=== PATIENT | male | born 2000 | race Caucasian/White ===

== ENCOUNTER 2021-08-06 18:33 | Emergency (ER) | payer BC, SELFPAY ==
[2021-08-06 18:34] VITALS: BP 130/73; PULSE 85; RESP 16; TEMP 37.4; O2SAT 96; BMI 25.2
[2021-08-06 18:58] LABS: Absolute Lymphocyte Count 1.09 X10^3/uL (0.83-4.51); Absolute Neutrophil Count 3.9 X10^3/uL (2.0-7.7); Basophil# 0.03 X10^3/uL; Basophil% 0.5 % (0-1); Eosinophils% 3.5 % (0-5); Hematocrit 46.6 % (40-54); Hemoglobin 16.4 g/dL (13.0-16.5); Lymphocyte # 1.09 X10^3/ul (0.83-4.51); Lymphocyte % 19.3 % (19-41); Mean Corp Hgb Conc 35.2 g/dL (32-36); Mean Corpuscular Hgb 29.4 pg (27.0-32.0); Mean Corpuscular Volume 83.7 fL (80-94); Mean Platelet Vol. 10.4 fl (6.2-12.0); Monocyte# 0.46 X10^3/uL; Monocyte% 8.1 % (0-10); NRBC Flagged by Analyzer 0 % (0-5); Neutrophil # 3.86 X10^3/uL (2.7-7.7); Neutrophil % 68.4 % (47-70); Platelet Count 225 K/mm3 (150-450); RBC Distribution Width CV 11.9 % (11.6-14.6); RBC Distribution Width SD 35.9 fl (35.1-43.9); Red Blood Count 5.57 M/mm3 (4.6-6.2); White Blood Count 5.7 K/mm3 (4.4-11.0)
[2021-08-06 19:10] LABS: Anion Gap 8 (5-15); BUN 8 mg/dL (7-18); BUN/Creat Ratio 8.4 RATIO (10-20); Chloride 104 mmol/L (98-107); Creatinine, Serum 0.96 mg/dL (0.70-1.30); EST Glomerular Filtration Rate 103 mL/min (>60); Est Glom Filt Rate - Afr Amer 125 mL/min (>60); Estimated Creatinine Clearance 115.78 ml/min; Glucose 124 mg/dL (74-106); Potassium 3.3 mmol/L (3.5-5.1); Sodium Level 138 mmol/L (136-145)
[2021-08-06 20:31] LABS: Mucous, Urine 0 SEEN /hpf (<or=2+); Red Blood Cells-Urine 0 SEEN /hpf (0-5); Squamous Epithelial Cells - UA 0 SEEN /hpf (0-5); White Blood Cells 0 SEEN /hpf (0-5)
[2021-08-06 20:33] LABS: Color, Urine Yellow (Yellow); Glucose, Dipstick Normal (Normal); Ketone-Dipstick Negative (Negative); Leukocyte Esterase-Dipstick Negative /ul (Negative); Nitrite-Dipstick Negative (Negative); Occult Blood-Urine Negative /ul (Negative); Protein-Dipstick Negative (Negative); Specific Gravity, Urine 1.015 (1.002-1.030); Urine Bilirubin Dipstick Negative (Negative); Urine Clarity Clear (Clear); Urine Urobilinogen Normal (Normal)
[2021-08-06 20:48] LABS: Bacteria 1+ /hpf (None Seen)
--- NOTE | 2021-08-06 21:27 | CT_ITS ---
STUDY: CT ABDOMEN AND PELVIS WITH CONTRAST REASON FOR EXAM: Male, 21 years old. Right lower quadrant pain. RADIATION DOSAGE (If Supplied By Facility): CTDIvol = ( 10.95 ) mGy, DLP = ( 566.87 ) mGycm TECHNIQUE: Transaxial images were obtained from the dome of the diaphragm to the symphysis pubis without oral contrast. IV 100mL Isovue-300 was administered. Sagittal and coronal images were reconstructed. Individualized dose optimization techniques were used for this CT. COMPARISON: None. FINDINGS: The visualized lung bases are unremarkable. The visualized portions of the heart are within normal limits. Normal liver. Normal gallbladder and extrahepatic biliary system. There is mild splenomegaly without mass. Normal pancreas. Normal bilateral adrenal glands. Normal right kidney. Normal left kidney. Normal visualized stomach. Normal small intestine. Normal colon. The appendix is visualized and appears normal. Normal abdominal aorta. Normal inferior vena cava. Normal retroperitoneum. Normal urinary bladder. Normal prostate. No pelvic lymphadenopathy. No free air or free fluid is seen within the peritoneal cavity. Normal abdominal wall. Normal osseous structures. CT/Abdomen/Pelvis W IV Cont ONLY IMPRESSION: 1. Normal appendix. 2. No evidence of right lower quadrant inflammatory change. 3. Mild splenomegaly. 4. Otherwise normal CT of the abdomen and pelvis. Electronically Signed: Jb Be DO at 22:06 EDT Tel [phone], Service support ,
--- NOTE | 2021-08-06 21:29 | EDS_ITS ---
HPI HPI - GI History of Present Illness Chief Complaint: Abd Pain Informant: patient Narrative Narrative: Patient sent from urgent care to rule out appendicitis. Reports generalized pain starting yesterday evening. Today pain in the upper abdomen on evaluation urgent care pain in the right lower quadrant. No fevers no nausea or vomiting. No diarrhea. Last bowel movement this morning. States had diarrhea a week ago that resolved. No abdominal surgery history. No past medical history. He states he last ate chips at 6 PM 3 and half hours ago. Pain more worse with palpation. Prior similar symptoms: No PFSH PFSH Medical History no medical history Home Medications NK 08/06/21 [History Last Taken Unknown] Allergy/AdvReac Type Severity Reaction Status Date / Time No Known Allergies Allergy Verified 08/06/21 18:34 Surgical History no surgical history Social History Smoking Status: Never smoker ROS ROS ED Constitutional Constitutional ED: Denies chills, fever(s) or sweats Eyes Eyes: Denies change in vision ENT ENT ED: Denies dysphagia or sore throat Cardiovascular Cardiovascular: Denies chest pain, leg edema, palpitations or racing heartbeat Respiratory/Chest Respiratory/Chest: Denies cough, dyspnea or dyspnea on exertion Gastrointestinal Gastrointestinal: Reports abdominal pain; Denies diarrhea, nausea or vomiting Genitourinary Genitourinary ED: Denies dysuria, hematuria or urinary frequency Musculoskeletal Musculoskeletal: Denies back pain, extremity pain or neck pain Integumentary Denies rash or wounds Neurologic Neurologic: Denies headache(s), paresthesias or weakness EXAM Physical Exam Const Vital Signs: 08/06/21 18:34 Temperature 99.4 F H Temperature Source Temporal Pulse Rate 85 Respiratory Rate 16 Blood Pressure 130/73 H Blood Pressure Mean 130/73 Pulse Ox 96 Oxygen Delivery Method Room Air Positive well nourished and well developed General Appearance ED: well developed and NAD HEENT Reports moist mucous membranes normocephalic and atraumatic Eyes PERRL, EOMs intact bilaterally and conjunctivae normal General Eye ED: Yes normal appearance of both eyes Neck no lymphadenopathy and supple General: Negative for tenderness Chest Wall Chest: Negative for tenderness Resp normal respiratory effort and normal air movement Effort and Inspection: symmetric chest movement; Negative for respiratory distress Cardio regular rate, regular rhythm and no murmurs Peripheral Pulses: pulses 2+ throughout GI normal to inspection, nondistended, normoactive bowel sounds GI Narrative: Negative Segundo's. Right lower quadrant tenderness without guarding or rebound. Negative Rovsing's. Palpation: Negative for guarding or rebound tenderness present Back/Spine no CVA tenderness and no thoracic nor lumbar tenderness Extremity normal to inspection General Extremety ED: Negative for edema or tenderness General Extremity: Negative for edema Neuro oriented x3 and no sensory deficits noted Sensorium / Orientation: awake and alert Skin no rashes or lesions noted and no wounds MDM MDM MDM Narrative Medical decision making narrative: Patient work-up needed from triage basic labs normal slight hypokalemia potassium 3.3. Urine negative. He declined any pain medications. IV fluids started CT scan ordered to rule out appendicitis. Patient be kept n.p.o. 2220: CT scan normal appendix with no inflammatory changes in that region. Reevaluation abdomen is soft. Discussed with patient monitoring for worsening symptoms to return for reevaluation otherwise given follow-up as an outpatient. All questions were answered. Lab Data Attestation: I reviewed the patient's lab results. Labs: Laboratory Results - last 24 hr 08/06/21 08/06/21 08/06/21 18:47 18:47 20:12 WBC 5.7 RBC 5.57 Hgb 16.4 Hct 46.6 MCV 83.7 MCH 29.4 MCHC 35.2 RDW Std Deviation 35.9 RDW Coeff of Derek 11.9 Plt Count 225 MPV 10.4 Immature Gran % (Auto) 0.200 Neut % (Auto) 68.4 Lymph % (Auto) 19.3 [place] % (Auto) 8.1 Eos % (Auto) 3.5 Baso % (Auto) 0.5 Absolute Neuts (auto) 3.9 Absolute Lymphs (auto) 1.09 Nucleated RBC % 0 Sodium 138 Potassium 3.3 L Chloride 104 Carbon Dioxide 26.0 Anion Gap 8 BUN 8 Creatinine 0.96 Estim Creat Clear Calc 115.78 Est GFR (MDRD) Af Amer 125 Est GFR (MDRD) Non-Af 103 BUN/Creatinine Ratio 8.4 L Glucose 124 H Calcium 9.0 Urine Color Yellow Urine Clarity Clear Urine pH 6.0 Ur Specific [place] 1.015 Urine Protein Negative Urine Glucose (UA) Normal Urine Ketones Negative Urine Occult Blood Negative Urine Nitrite Negative Urine Bilirubin Negative Urine Urobilinogen Normal Ur Leukocyte Esterase Negative Urine RBC 0 SEEN Urine WBC 0 SEEN Ur Squamous Epith Cells 0 SEEN Urine Bacteria 1+ Urine Mucus 0 SEEN Radiography Diagnostic Testing: Radiology Impression Abdomen/Pelvis CT 08/06/21 21:27 IMPRESSION: 1. Normal appendix. 2. No evidence of right lower quadrant inflammatory change. 3. Mild splenomegaly. 4. Otherwise normal CT of the abdomen and pelvis. Electronically Signed: Jb KaminskionDO at 22:06 EDT Tel [phone], Service support , Discharge Plan Triage Chief Complaint: Abd Pain ED Provider: Yousif Trinidad Dx/Rx/DC Orders Clinical Impression: Abdominal pain, RLQ Instructions: Abdominal Pain Prescriptions: No Action NK RF: 0 Referrals: Angel Luis Decker MD [STAFF PHYSICIAN] - 1 Week Activity Restrictions/Additional Instructions: CT scan normal appendix today. Labs stable. Monitor symptoms. If worsens or new symptoms return for reevaluation. Otherwise follow-up as an outpatient. Disposition Disposition: Home, Self Care
[2021-08-06 22:40] VITALS: BP 128/70; PULSE 82; RESP 16; O2SAT 99
== END 2021-08-06 22:41 | disposition home or self-care (01) ==
PROVIDERS: Emergency Provider Emergency Medicine
DX: R10.31 Right lower quadrant pain (principal); E87.6 Hypokalemia
CPT/HCPCS: 74177; 80048; 81001; 85025; 99283; Q9967; A4216